=== PATIENT | male | born 1960 | race Caucasian/White ===

== ENCOUNTER 2017-05-11 16:28 | Emergency (ER) | payer OTHER ==
[2017-05-11] MEDS: 0.9 % SODIUM CHLORIDE 1,000 ML IV ONE (17:00)
[2017-05-11] MEDS: ONDANSETRON HCL/PF 4 MG/ 2ML VIAL IVP ONE (17:00)
--- NOTE | 2017-05-11 17:02 | ED Physician Documentation ---
Nausea/Vomiting/Diarrhea - HISTORIAN Historian: patient, spouse - HPI Stated Complaint: Nausea/Vomiting Chief Complaint: Nausea,Vomiting,Diarrhea Additional Information: started vomiting this Am, now just dry heaves. Thinks he might have ate something bad last PM. Fried calamari. no diarrhea yet. No pain Onset: hours Duration: constant Timing: sudden onset Context: bad food Severity: mild Further Comments: no - Associated Symptoms Vomiting: mild, frequent. denies: bloody, blood-streaked, bilious, feculent Abdominal Pain: none - ROS CONST: none CVS/RESP: denies: chest pain, shortness of breath, cough GI/: none EYES/ENT: none MS/SKIN/LYMPH: denies: joint pain, leg swelling, rash NEURO/PSYCH: none - PAST HX Past History: none Surgeries/Procedures: other (ortho, hernias) Allergies/Adverse Reactions: Allergies Allergy/AdvReac Type Severity Reaction Status Date / Time No Known Allergies Allergy Unverified 05/11/17 16:49 Home Medications: Ambulatory Orders Medication Instructions Recorded Fenofibrate [Fenofibrate] 160 mg PO DAILY 05/11/17 Rosuvastatin Calcium [Crestor] 10 mg PO DAILY 05/11/17 Tamsulosin HCl [Flomax] 0.4 mg PO DAILY 05/11/17 - SOCIAL HX Smoking History: non-smoker Alcohol Use: none Drug Use: none - FAMILY HX Family History: none - VITAL SIGNS Vital Signs: Vital Signs Temp Pulse Resp BP Pulse Ox 97 F L 100 H 28 H 132/78 100 05/11/17 16:30 05/11/17 16:30 05/11/17 16:30 05/11/17 16:30 05/11/17 16:30 - REVIEWED ASSESSMENTS Nursing Assessment Reviewed: Yes Vitals Reviewed: Yes Progress - Results/Orders Results/Orders: feels much improved afetr zofran and fluids. ED Results Lab/Radiology - Lab Results Lab Results: Lab Results 05/11/17 05/11/17 17:00 17:00 WBC 13.30 K/ul H K/ul (4.00-12.00) RBC 5.53 M/ul H M/ul (3.90-5.20) Hgb 16.8 g/dL g/dL (12.0-18.0) Hct 48.6 % % (37.0-53.0) MCV 87.8 fl fl (80.0-100.0) MCH 30.4 pg pg (28.0-34.0) MCHC 34.7 g/dL g/dL (30.0-36.0) RDW 12.1 % % (11.3-14.3) Plt Count 293 K/mm3 K/mm3 (130-400) Seg Neutrophils % 87 % H % (39-79) Band Neutrophils % 5 % % (0-12) Lymphocytes % 6 % L % (16-50) Monocytes % 1 % % (0-11) Reactive Lymphocytes 1 % % (0-5) Plt Morphology Comment Normal (NORMAL) RBC Morph Comment Normal (NORMAL) Sodium 144 mmol/L mmol/L (136-145) Potassium 4.0 mmol/L mmol/L (3.5-5.1) Chloride 102 mmol/L mmol/L (98-107) Carbon Dioxide 22 mmol/L mmol/L (22-30) BUN 23 mg/dL H mg/dL (9-20) Creatinine 1.20 mg/dL mg/dL (0.66-1.25) Estimated Creat Clear 81 Est GFR ( Amer) > 60 (60 - ) Est GFR (Non-Af Amer) > 60 (60 - ) Glucose 132 mg/dL H mg/dL (74-106) Calcium 10.0 mg/dL mg/dL (8.4-10.2) Total Bilirubin 1.6 mg/dL H mg/dL (0.2-1.3) AST 38 U/L U/L (15-46) ALT 37 U/L U/L (13-69) Alkaline Phosphatase 43 U/L U/L (38-126) Total Protein 7.7 g/dL g/dL (6.3-8.2) Albumin 4.8 g/dL g/dL (3.5-5.0) - Orders Orders: ED Orders Category Date Time Status CBC/PLATELET/DIFF Routine Lab 05/11/17 17:00 Completed CMP Routine Lab 05/11/17 17:00 Completed URINALYSIS Routine Lab 05/11/17 Ordered 0.9 % Sodium Chloride [Normal Saline] 1,000 ml Med 05/11/17 17:00 Discontinued IV NOW Ondansetron HCl/Pf [Zofran 4 mg/2 ml] Med 05/11/17 17:00 Discontinued 4 mg IVP NOW ONE Nausea Physical Exam - EXAM General Appearance: no acute distress, alert EENT: eye inspection normal, ENT inspection normal, pharynx normal. No: TM erythema Neck: normal inspection, thyroid normal, supple Respiratory: no resp distress, chest non-tender, breath sounds normal CVS: reg rate & rhythm, heart sounds normal, equal pulses Abdomen: non-tender Skin: warm/dry, other (slow cap refill) Extremities: non-tender, normal range of motion, no evidence of injury Neuro/Psych: oriented X3, motor nml, sensation nml, mood/affect nml Discharge Clincal Impression: Enteritis Nausea & vomiting Qualifiers: Vomiting type: unspecified Vomiting Intractability: intractable Qualified Code( s): R11.2 - Nausea with vomiting, unspecified Referrals: Primary Doctor,No [Primary Care Provider] - 2 Days Condition: Good Disposition: 01 HOME, SELF-CARE Decision to Admit: NO Date of Decison to Admit: 05/11/17 Decision Time: 18:13
[2017-05-11 17:14] LABS: MEAN CORPUSCULAR HEMOGLOBIN 30.4 pg (28.0-34.0); MEAN CORPUSCULAR VOLUME 87.8 fl (80.0-100.0)
[2017-05-11 17:15] LABS: eGFR (African) > 60; eGFR (Non-African) > 60
[2017-05-11 17:47] LABS: MONOCYTES % 1 % (0-11); SEGMENTED NEUTROPHILS % 87 % (39-79)
[2017-05-11 18:25] VITALS: BP 121/80
== END 2017-05-11 18:22 | disposition home or self-care (01) ==
LOC: ED 16:28
DX: K52.9 Noninfective gastroenteritis and colitis, unspecified (principal)
CPT/HCPCS: 80053; 85025; J2405; J7030; 96365; 96375; 99283; S1016